=== PATIENT | male | born 1995 | race African-American/Black ===

== ENCOUNTER 2022-04-04 22:41 | Emergency (ER) | payer MEDICAID ==
[~2022-04-04] VITALS: Ht 182.9 cm; Wt 85.3 kg
--- NOTE | 2022-04-04 23:00 | NUR ---
AVERY FROM [facility] FOR DIFFUSED ABDOMINAL PAIN WITH VOMITTING. PATIENT HAD TAKEN 15 IBUPROFEN AND HALF BOTTLE OF VODKA YESTERDAY AT 8PM SUICIDE ATTEMPT. PT A/OX4. TOLERATING R/A WELL WITH NO SOB. VSS. PT AMBULATORY WITH STEADY GAIT.
[2022-04-04] MEDS ORDERED: ONDANSETRON HCL/PF 4 MG/2 ML VIAL ONE (23:17)
[2022-04-04] MEDS ORDERED: MORPHINE SULFATE INJ 2 MG/ML DISP.SYRIN ONE (23:18)
[2022-04-04] MEDS ORDERED: IV NS 0.9% 1,000 ML BAG IV ONE (23:30)
[2022-04-04] MEDS ORDERED: ONDANSETRON HCL/PF 4 MG/2 ML VIAL IVP ONE (23:30)
[2022-04-04] MEDS ORDERED: MORPHINE SULFATE INJ 2 MG/ML DISP.SYRIN IV ONE (23:30)
--- NOTE | 2022-04-04 23:35 | NUR ---
IV ESTABLISHED L ULYSSES #22G S/L
--- NOTE | 2022-04-04 23:35 | NUR ---
blood drawn and sent to lab
--- NOTE | 2022-04-04 23:40 | NUR ---
pt taken to [facility] via [facility]
[2022-04-04 23:45] LABS: BASOPHILS % (AUTO) 0.4 % (0.0-2.0); EOSINOPHILS % (AUTO) 0.3 % (0.0-6.0); HEMATOCRIT 47 % (39-51); HEMOGLOBIN 15.4 g/dL (13.5-17.5); LYMPHOCYTES # (AUTO) 0.8 K/uL (0.8-4.8); LYMPHOCYTES % (AUTO) 8.3 % (20.0-44.0); MEAN CORPUSCULAR HGB CONC 33 g/dl (31.0-36.0); MEAN CORPUSCULAR VOLUME 94 fL (80-96); MONOCYTES # (AUTO) 0.7 K/uL (0.1-1.30); MONOCYTES % (AUTO) 6.8 % (2.0-12.0); NEUTROPHILS # (AUTO) 8.6 K/uL (1.8-8.9); NEUTROPHILS % (AUTO) 84.2 % (43.0-81.0); PLATELET COUNT (AUTO) 242 K/uL (150-450); RED BLOOD CELL COUNT(AUTO) 4.99 MIL/uL (4.5-6.0); WHITE BLOOD COUNT (AUTO) 10.2 K/uL (4.3-11.0)
--- NOTE | 2022-04-04 23:50 | NUR ---
CALLED LAB TO F/U ON LABS
[2022-04-05 00:06] LABS: ALANINE AMINOTRANSFERASE 24 U/L (12-78); ALBUMIN 4.6 g/dL (3.4-5.0); ALCOHOL, BLOOD < 3 mg/dL (0-0); ALKALINE PHOSPHATASE 106 U/L (46-116); ASPARTATE AMINOTRANSFERASE 14 U/L (15-37); BILIRUBIN,DIRECT 0.1 mg/dL (0.0-0.2); BILIRUBIN,TOTAL 0.5 mg/dL (0.2-1.0); CALCIUM, SERUM 9.2 mg/dL (8.5-10.1); CARBON DIOXIDE 24 mmol/L (21-32); CHLORIDE 104 mmol/L (98-107); CREATININE 1.3 mg/dL (0.6-1.3); GLUCOSE 89 mg/dL (74-106); LIPASE 60 U/L (73-393); POTASSIUM 3.8 mmol/L (3.5-5.1); SODIUM SERUM 138 mmol/L (136-145); TOTAL PROTEIN, SERUM 8.3 g/dL (6.4-8.2); UREA NITROGEN, BLOOD 11 mg/dL (7-18)
--- NOTE | 2022-04-05 00:19 | NUR ---
URINE COLLECTED AND SENT TO LAB
[2022-04-05 00:30] LABS: ACETAMINOPHEN 0 ug/ml (10-30)
[2022-04-05] MEDS ORDERED: ONDA4TAB5 PO (00:33)
--- NOTE | 2022-04-05 00:39 | NUR ---
PER LISA [facility] WILL PICKUP PT WITH ETA 70-90 MINUTES
--- NOTE | 2022-04-05 00:41 | NUR ---
REPORT GIVEN TO YA HERNÁNDEZ RN FOR LISA
[2022-04-05 00:46] LABS: BILIRUBIN,URINE NEGATIVE (NEGATIVE); COLOR,URINE YELLOW (YELLOW); LEUKOCYTE ESTERASE ,URINE NEGATIVE (NEGATIVE); NITRITE, URINE NEGATIVE (NEGATIVE); PROTEIN,URINE NEGATIVE (NEGATIVE); UGLUCOSE NEGATIVE (NEGATIVE); UROBILINOGEN,URINE 0.2 EU/dL (0.2)
--- NOTE | 2022-04-05 01:35 | NUR ---
CLINICALS SENT TO [facility]TA[facility]
--- NOTE | 2022-04-05 04:13 | NUR ---
called to follow up regarding transfering back to facility but intake taking care of the case is on break and will call back.
--- NOTE | 2022-04-05 05:17 | NUR ---
CALLED AND SPOKE WITH ART, INTAKE REGARDING PT'S ADMISSION. TO [facility]. AWAITING FOR FACILITY SUPERVIOR APPROVAL.
--- NOTE | 2022-04-05 05:20 | NUR ---
PT IS ACCEPTED AT [facility] UNDER THE CARE OF DR. JANG. [facility] [phone] FOR REPORT.
[2022-04-05 05:33] VITALS: BP 147/73
--- NOTE | 2022-04-05 05:33 | NUR ---
ETA [phone] FOR RECORDS TECH VIA [facility]
--- NOTE | 2022-04-05 05:37 | NUR ---
REPORT GIVEN TO FRANCES PANDYA SUP
--- NOTE | 2022-04-05 06:55 | NUR ---
[facility] AT BEDSIDE FOR PT TRANSPORT TO [facility]. PT IS IN STABLE CONDITION FOR TRANSPORT. REPORT GIVEN. PT IS IN STABLE CONDITION FOR TRANSPORT.
--- NOTE | 2022-04-05 06:57 | NUR ---
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
[2022-04-05] MEDS ORDERED: MAG-55 PO (12:29)
[2022-04-05] MEDS ORDERED: ONDA4TAB11 PO (12:29)
== END 2022-04-05 06:57 | disposition home or self-care (01) ==
LOC: ER 22:52
DX: R10.84 Generalized abdominal pain (principal); R11.10 Vomiting, unspecified; Z59.00 Homelessness unspecified; Z79.899 Other long term (current) drug therapy
CPT/HCPCS: 36415; 74176; 80048; 80076; 80143; 80307; 80320; 81003; 83690; 85025; 85730; 96361; 96374; 96375; 99284; J2270; J2405; J7030; G0480

== ENCOUNTER 2022-04-05 07:44 | Emergency (ER) | payer MEDICAID ==
[~2022-04-05] VITALS: Ht 188 cm; Wt 102.1 kg
[~2022-04-05 07:44] MED LIST: ONDA4TAB5 PO
--- NOTE | 2022-04-05 08:00 | NUR ---
RICK NARANJO unit 280 "Was transported to [facility] for SI but he started vomitin so they refused" TO ER BED 13, HOOKED TO MONITOR, CHANGED TO HOSP GOWN,W ARM BLANKET PROVIDED. AWAITING MD NANCE
--- NOTE | 2022-04-05 08:01 | NUR ---
DR DICK AT BEDSIDE
[2022-04-05] MEDS ORDERED: ONDANSETRON HCL/PF 4 MG/2 ML VIAL IVP ONE (08:30)
[2022-04-05] MEDS ORDERED: HALOPERIDOL LACTATE INJ 5 MG/ML VIAL IM ONE (08:30)
[2022-04-05] MEDS ORDERED: IV NS 0.9% 1,000 ML BAG IV ONE (08:30)
[2022-04-05 08:38] LABS: BASOPHILS % (AUTO) 0.2 % (0.0-2.0); EOSINOPHILS % (AUTO) 0.2 % (0.0-6.0); HEMATOCRIT 47 % (39-51); HEMOGLOBIN 15.4 g/dL (13.5-17.5); LYMPHOCYTES # (AUTO) 1.8 K/uL (0.8-4.8); LYMPHOCYTES % (AUTO) 13.9 % (20.0-44.0); MEAN CORPUSCULAR HGB CONC 33 g/dl (31.0-36.0); MEAN CORPUSCULAR VOLUME 93 fL (80-96); MONOCYTES # (AUTO) 0.8 K/uL (0.1-1.30); MONOCYTES % (AUTO) 6.1 % (2.0-12.0); NEUTROPHILS # (AUTO) 10.4 K/uL (1.8-8.9); NEUTROPHILS % (AUTO) 79.6 % (43.0-81.0); PLATELET COUNT (AUTO) 215 K/uL (150-450); RED BLOOD CELL COUNT(AUTO) 5.02 MIL/uL (4.5-6.0); WHITE BLOOD COUNT (AUTO) 13.1 K/uL (4.3-11.0)
[2022-04-05] MEDS ORDERED: ONDANSETRON HCL/PF 4 MG/2 ML VIAL ONE (08:47)
[2022-04-05] MEDS ORDERED: HALOPERIDOL LACTATE INJ 5 MG/ML VIAL ONE (08:47)
--- NOTE | 2022-04-05 09:02 | NUR ---
URINE SAMPLE COLLECTED AND SENT TO LAB
[2022-04-05 09:20] LABS: ALANINE AMINOTRANSFERASE 23 U/L (12-78); ALBUMIN 4.3 g/dL (3.4-5.0); ALKALINE PHOSPHATASE 99 U/L (46-116); ASPARTATE AMINOTRANSFERASE 12 U/L (15-37); BILIRUBIN,DIRECT 0.1 mg/dL (0.0-0.2); BILIRUBIN,TOTAL 0.5 mg/dL (0.2-1.0); CALCIUM, SERUM 9.1 mg/dL (8.5-10.1); CARBON DIOXIDE 19 mmol/L (21-32); CHLORIDE 103 mmol/L (98-107); CREATININE 1.2 mg/dL (0.6-1.3); GLUCOSE 112 mg/dL (74-106); SODIUM SERUM 136 mmol/L (136-145); TOTAL PROTEIN, SERUM 7.9 g/dL (6.4-8.2); UREA NITROGEN, BLOOD 9 mg/dL (7-18)
[2022-04-05 09:29] LABS: ALCOHOL, BLOOD < 3 mg/dL (0-0)
[2022-04-05] MEDS ORDERED: IV NS 0.9% 1,000 ML IV ONE (09:30)
[2022-04-05] MEDS ORDERED: MAG HYDROX/AL HYDROX/SIMETH 30 ML UDC PO ONE (10:30)
[2022-04-05] MEDS ORDERED: LIDOCAINE VISCOUS 2% UD 15 ML UDC MM ONE (10:30)
[2022-04-05] MEDS ORDERED: PANTOPRAZOLE 40 MG VIAL IV ONE (10:30)
[2022-04-05 11:00] LABS: BILIRUBIN,URINE NEGATIVE (NEGATIVE); COLOR,URINE YELLOW (YELLOW); LEUKOCYTE ESTERASE ,URINE NEGATIVE (NEGATIVE); NITRITE, URINE NEGATIVE (NEGATIVE); PROTEIN,URINE NEGATIVE (NEGATIVE); UGLUCOSE NEGATIVE (NEGATIVE); UROBILINOGEN,URINE 0.2 EU/dL (0.2)
[2022-04-05] MEDS ORDERED: PANTOPRAZOLE 40 MG VIAL ONE (11:15)
[2022-04-05] MEDS ORDERED: MAG HYDROX/AL HYDROX/SIMETH 30 ML UDC ONE (11:16)
[2022-04-05] MEDS ORDERED: LIDOCAINE VISCOUS 2% UD 15 ML UDC ONE (11:16)
[2022-04-05] MEDS ORDERED: MAG-55 PO (12:29)
[2022-04-05] MEDS ORDERED: ONDA4TAB11 PO (12:29)
--- NOTE | 2022-04-05 12:30 | NUR ---
[facility] CALLED FOR TRANSPORT ETA 60 MINS PER STEVE.
--- NOTE | 2022-04-05 12:54 | NUR ---
IV removed. Catheter intact and site benign. Pressure and 4x4 applied to site. No bleeding noted.Patient discharged to home in stable condition. Written and verbal after care instructions given. Patient verbalizes understanding of instruction.
[2022-04-05 12:55] VITALS: BP 135/80
== END 2022-04-05 12:50 | disposition home or self-care (01) ==
LOC: ER 07:49
DX: K29.70 Gastritis, unspecified, without bleeding (principal); R11.2 Nausea with vomiting, unspecified; Z59.00 Homelessness unspecified; Z79.899 Other long term (current) drug therapy
CPT/HCPCS: 36415; 80048; 80076; 80320; 81003; 83690; 85025; 93005; 96361; 96372; 96374; 96375; 99284; C9113; J1630; J2405; J7030 ×2; G0480